=== PATIENT | female | born 1945 | race Caucasian/White ===

== ENCOUNTER 2019-11-17 09:05 | Inpatient (IN) | payer MEDICARE, SELFPAY ==
[2019-11-17] VITALS (72 sets, daily range): BP systolic 60–112; BP diastolic 0–80; PULSE 75–159; RESP 14–28; TEMP 36.5; O2SAT 67–99; BMI 29.2
--- NOTE | 2019-11-17 08:46 | ECG_ITS ---
Measurements Intervals [place] Rate: 113 P: OR: 0 QRS: -71 QRSD: 170 T: 78 QT: 318 QTc: 437 ATRIAL FIBRILLATION WITH RAPID VENTRICULAR RESPONSE INTRAVENTRICULAR CONDUCTION DELAY [130+ ms QRS DURATION] INFERIOR MYOCARDIAL INFARCTION [40+ ms Q WAVE AND/OR ST/T ABNORMALITY IN II/aVF], PROBABLY OLD WITH POSTERIOR EXTENSION [PROMIN ANTEROLATERAL MYOCARDIAL INFARCTION [40+ ms Q WAVE IN I/aVL/V3-V6], OF IN INDETERMINATE AGE No previous ECG available for comparison Electronically Signed On 11-17-2019 21:00:51 CDT by Dorene Liu M.D. [id number]
--- NOTE | 2019-11-17 08:46 | XRR_ITS ---
PROCEDURE INFORMATION: Exam: XR Chest, 1 View Exam date and time: 11/17/2019 9:24 AM Age: 74 years old Clinical indication: Other: Rapid heart rate; Patient HX: Woke up this am not feeling well, PT does have pacer pads on that could not be removed; Additional info: Svt TECHNIQUE: Imaging protocol: XR of the chest Views: 1 view. COMPARISON: No relevant prior studies available. FINDINGS: The thorax is partially obscured by overlying EKG patch. Lungs: Interstitial prominence. Pleural space: No significant pleural effusion. Heart/Mediastinum: Borderline cardiomegaly. Bones/joints: Osteopenia and mild degenerative change. XR/XR chest 1V portable [id number] IMPRESSION: Interstitial prominence and borderline cardiomegaly.
[2019-11-17] MEDS: sodium chloride 0.9% 500 ML 999 ML IV (08:47)
--- NOTE | 2019-11-17 08:52 | W.ED.CHESTPA ---
HPI - Chest Pain General: Chief Complaint: Chest Pain Stated Complaint: rapid heart rate History of Present Illness: HPI narrative: Patient awoke this morning with rapid pounding heart rate. She had some chest pain at that time along with shortness of breath and diaphoresis. EMS was summoned. Patient was found to be in SVT. She was given adenosine 6 mg and then 12 mg. There was no response to this treatment. The decision was made to cardiovert the patient. MD complaint: chest pain Onset (ago): hour(s) Timing of current episode: now resolved Prior episodes: No Onset: awoke with symptoms Pain location: substernal Pain radiation: none Quality: heaviness and fullness Relieving factors: nothing Exacerbating factors: nothing Associated symptoms: Reports dyspnea and palpitations Treatment prior to arrival: none, oxygen and other Review of Systems Card: Reports: palpitations Resp: Reports: dyspnea [facility] ED PFSH: Social History Smoking and tobacco status: former smoker Course Vital Signs: Vital signs: Vital Signs Temperature 97.7 F 11/17/19 08:51 Pulse Rate 128 H 11/17/19 11:30 Respiratory Rate 16 11/17/19 11:30 Blood Pressure 91/47 11/17/19 11:30 Pulse Oximetry 99 11/17/19 11:30 MDM - Chest Pain Lab Data: Labs: Lab Results 11/17/19 11/17/19 11/17/19 Range/Units 09:15 09:15 09:15 WBC 9.7 (4.0-10.0) 10^3/ uL RBC 4.66 (4.1-5.3) 10^6/u L Hgb 14.8 (11.5-15.3) g/dL Hct 44.3 (37.0-47.0) % MCV 95.1 (81-99) fL MCH 31.8 (28.0-34.0) pg MCHC 33.4 (30.0-36.0) g/dL RDW 13.4 (12.1-15.1) % Plt Count 265 (130-400) 10^3/c mm MPV 10.0 (7.4-10.4) fL Neut % (Auto) 58.9 % Lymph % (Auto) 35.1 % [place] % (Auto) 4.3 % Eos % (Auto) 1.2 % Baso % (Auto) 0.3 % Neut # (Auto) 5.7 (1.8-7.7) 10^3/u L Lymph # (Auto) 3.4 (0.8-4.8) 10^3/u L [place] # (Auto) 0.4 (0.2-0.9) 10^3/u L Eos # (Auto) 0.1 (0.0-0.8) 10^3/u L Baso # (Auto) 0.0 (0.0-0.1) 10^3/u L Nucleated RBC % (a uto) 0 % Nucleated RBCs # 0.0 /100WBC PT 13.40 H (10.5-13.3) SECO NDS INR 0.99 (0.8-1.2) Sodium 137 (136-145) mmol/L Potassium 4.5 (3.5-5.1) mmol/L Chloride 102 (98-107) mmol/L Carbon Dioxide 19 L (22-29) mmol/L Anion Gap 20.5 H (5-19) BUN 15 (8-23) mg/dL Creatinine 0.8 (0.5-0.9) mg/dL Glucose 260 H (65-115) mg/dL Calculated Osmolal ity 289 (285-295) mOsm/k g Calcium 9.0 (8.5-10.5) mg/dL Phosphorus (2.5-4.5) mg/dL Magnesium (1.7-2.3) mg/dL Total Bilirubin 0.4 (0.15-1.2) mg/dL AST 30 (0-32) U/L ALT 22 (0-33) U/L Alkaline Phosphata se 85 (35-105) IU/L Troponin T Baselin e (0-10) ng/L Troponin T 120 Min [place] (0-10) ng/L Delta Troponin T (0-10) ABS# NT-Pro-B Natriuret Pep 669 H (0-450) pg/mL Total Protein 6.8 (6.6-8.7) g/dL Albumin 4.2 (3.5-5.2) g/dL Globulin 2.6 (1.3-4.6) g/dL TSH 7.34 H (0.27-4.20) uIU/ mL Urine Color (Yellow) Urine Appearance (CLEAR) Urine pH (5-7) Ur Specific Gravit y (1.005-1.030) Urine Protein (Negative) Urine Glucose (UA) (Normal) Urine Ketones (Negative) Urine Blood (Negative) Urine Nitrate (Negative) Urine Bilirubin (NEGATIVE) Urine Urobilinogen (Negative) mg/dL Ur Leukocyte Cristina ase (Negative) Urine RBC (0-2) /hpf Urine WBC (0-5) /hpf Ur Squamous Epith Cells (0-5) Urine Bacteria (NONE) Hyaline Casts Coarse Granular Ca sts /lpf Urine Mucus 11/17/19 11/17/19 11/17/19 Range/Units 09:15 09:15 09:50 WBC (4.0-10.0) 10^3/ uL RBC (4.1-5.3) 10^6/u L Hgb (11.5-15.3) g/dL Hct (37.0-47.0) % MCV (81-99) fL MCH (28.0-34.0) pg MCHC (30.0-36.0) g/dL RDW (12.1-15.1) % Plt Count (130-400) 10^3/c mm MPV (7.4-10.4) fL Neut % (Auto) % Lymph % (Auto) % [place] % (Auto) % Eos % (Auto) % Baso % (Auto) % Neut # (Auto) (1.8-7.7) 10^3/u L Lymph # (Auto) (0.8-4.8) 10^3/u L [place] # (Auto) (0.2-0.9) 10^3/u L Eos # (Auto) (0.0-0.8) 10^3/u L Baso # (Auto) (0.0-0.1) 10^3/u L Nucleated RBC % (a uto) % Nucleated RBCs # /100WBC PT (10.5-13.3) SECO NDS INR (0.8-1.2) Sodium (136-145) mmol/L Potassium (3.5-5.1) mmol/L Chloride (98-107) mmol/L Carbon Dioxide (22-29) mmol/L Anion Gap (5-19) BUN (8-23) mg/dL Creatinine (0.5-0.9) mg/dL Glucose (65-115) mg/dL Calculated Osmolal ity (285-295) mOsm/k g Calcium (8.5-10.5) mg/dL Phosphorus 4.0 (2.5-4.5) mg/dL Magnesium 2.3 (1.7-2.3) mg/dL Total Bilirubin (0.15-1.2) mg/dL AST (0-32) U/L ALT (0-33) U/L Alkaline Phosphata se (35-105) IU/L Troponin T Baselin e 15 H (0-10) ng/L Troponin T 120 Min [place] (0-10) ng/L Delta Troponin T (0-10) ABS# NT-Pro-B Natriuret Pep (0-450) pg/mL Total Protein (6.6-8.7) g/dL Albumin (3.5-5.2) g/dL Globulin (1.3-4.6) g/dL TSH (0.27-4.20) uIU/ mL Urine Color Yellow (Yellow) Urine Appearance Hazy A (CLEAR) Urine pH 6 (5-7) Ur Specific Gravit y 1.015 (1.005-1.030) Urine Protein 1+ H (Negative) Urine Glucose (UA) Norm (Normal) Urine Ketones Negative (Negative) Urine Blood Neg (Negative) Urine Nitrate Positive H (Negative) Urine Bilirubin Neg (NEGATIVE) Urine Urobilinogen Norm (Negative) mg/dL Ur Leukocyte Cristina ase Negative (Negative) Urine RBC None (0-2) /hpf Urine WBC 5-10 H (0-5) /hpf Ur Squamous Epith Cells None (0-5) Urine Bacteria 3+ H (NONE) Hyaline Casts 15-25 H Coarse Granular Ca sts 0-4 H /lpf Urine Mucus Trace 11/17/19 Range/Units 11:06 WBC (4.0-10.0) 10^3/ uL RBC (4.1-5.3) 10^6/u L Hgb (11.5-15.3) g/dL Hct (37.0-47.0) % MCV (81-99) fL MCH (28.0-34.0) pg MCHC (30.0-36.0) g/dL RDW (12.1-15.1) % Plt Count (130-400) 10^3/c mm MPV (7.4-10.4) fL Neut % (Auto) % Lymph % (Auto) % [place] % (Auto) % Eos % (Auto) % Baso % (Auto) % Neut # (Auto) (1.8-7.7) 10^3/u L Lymph # (Auto) (0.8-4.8) 10^3/u L [place] # (Auto) (0.2-0.9) 10^3/u L Eos # (Auto) (0.0-0.8) 10^3/u L Baso # (Auto) (0.0-0.1) 10^3/u L Nucleated RBC % (a uto) % Nucleated RBCs # /100WBC PT (10.5-13.3) SECO NDS INR (0.8-1.2) Sodium (136-145) mmol/L Potassium (3.5-5.1) mmol/L Chloride (98-107) mmol/L Carbon Dioxide (22-29) mmol/L Anion Gap (5-19) BUN (8-23) mg/dL Creatinine (0.5-0.9) mg/dL Glucose (65-115) mg/dL Calculated Osmolal ity (285-295) mOsm/k g Calcium (8.5-10.5) mg/dL Phosphorus (2.5-4.5) mg/dL Magnesium (1.7-2.3) mg/dL Total Bilirubin (0.15-1.2) mg/dL AST (0-32) U/L ALT (0-33) U/L Alkaline Phosphata se (35-105) IU/L Troponin T Baselin e (0-10) ng/L Troponin T 120 Min [place] 153.2 H (0-10) ng/L Delta Troponin T 138.2 H* (0-10) ABS# NT-Pro-B Natriuret Pep (0-450) pg/mL Total Protein (6.6-8.7) g/dL Albumin (3.5-5.2) g/dL Globulin (1.3-4.6) g/dL TSH (0.27-4.20) uIU/ mL Urine Color (Yellow) Urine Appearance (CLEAR) Urine pH (5-7) Ur Specific Gravit y (1.005-1.030) Urine Protein (Negative) Urine Glucose (UA) (Normal) Urine Ketones (Negative) Urine Blood (Negative) Urine Nitrate (Negative) Urine Bilirubin (NEGATIVE) Urine Urobilinogen (Negative) mg/dL Ur Leukocyte Cristina ase (Negative) Urine RBC (0-2) /hpf Urine WBC (0-5) /hpf Ur Squamous Epith Cells (0-5) Urine Bacteria (NONE) Hyaline Casts Coarse Granular Ca sts /lpf Urine Mucus Discharge Plan Discharge Patient Disposition: Admitted As Inpatient Clinical Impression: Non-ST elevation SD (NSTEMI), Atrial fibrillation/flutter, Ventricular tachyarrhythmia Chest pain Qualifiers: Chest pain type: unspecified Qualified Code(s): R07.9 - Chest pain, unspecified Cardiac dysrhythmia Qualifiers: Arrhythmia type: supraventricular tachycardia Qualified Code(s): I47.1 - Supraventricular tachycardia Condition: Serious Referrals: Geneva Franklin [Primary Care Provider] - Coding Level of Care Code ED Ramp Service Agent for [facility]
--- NOTE | 2019-11-17 09:22 | PC.NURSE ---
Patient connected to [employer] monitor via combo pads.
--- NOTE | 2019-11-17 09:22 | PC.NURSE ---
Patient hygiene performed.
[2019-11-17 09:39] LABS: Basophils % 0.3 %; Eosinophils # 0.1 10^3/uL (0.0-0.8); Eosinophils % 1.2 %; Hematocrit 44.3 % (37.0-47.0); Hemoglobin 14.8 g/dL (11.5-15.3); Lymphocytes # 3.4 10^3/uL (0.8-4.8); Lymphocytes % 35.1 %; Mean Corpuscular HGB Conc 33.4 g/dL (30.0-36.0); Mean Corpuscular Hemoglobin 31.8 pg (28.0-34.0); Mean Corpuscular Volume 95.1 fL (81-99); Monocytes # 0.4 10^3/uL (0.2-0.9); Monocytes % 4.3 %; Neutrophils # 5.7 10^3/uL (1.8-7.7); Neutrophils % 58.9 %; Nucleated Red Blood Cells % 0 %; Platelet Count 265 10^3/cmm (130-400); Red Blood Count 4.66 10^6/uL (4.1-5.3); Red Cell Distribution Width 13.4 % (12.1-15.1); White Blood Count 9.7 10^3/uL (4.0-10.0)
[2019-11-17 09:48] LABS: INR 0.99 (0.8-1.2)
[2019-11-17 09:55] LABS: Troponin(5th) Baseline 15 ng/L (0-10)
[2019-11-17 10:03] LABS: Alanine Aminotransferase 22 U/L (0-33); Albumin Level 4.2 g/dL (3.5-5.2); Alkaline Phosphatase 85 IU/L (35-105); Anion Gap 20.5 (5-19); Aspartate Amino Transferase 30 U/L (0-32); Blood Urea Nitrogen 15 mg/dL (8-23); Carbon Dioxide 19 mmol/L (22-29); Chloride 102 mmol/L (98-107); Globulin 2.6 g/dL (1.3-4.6); Glucose 260 mg/dL (65-115); NT Pro B Type Natriuretic Pept 669 pg/mL (0-450); Osmolality Calculated 289 mOsm/kg (285-295); Potassium 4.5 mmol/L (3.5-5.1); Sodium 137 mmol/L (136-145); Thyroid Stimulating Hormone 7.34 uIU/mL (0.27-4.20); Total Bilirubin 0.4 mg/dL (0.15-1.2); Total Protein 6.8 g/dL (6.6-8.7)
--- NOTE | 2019-11-17 10:46 | ECG_ITS ---
Measurements Intervals [place] Rate: 91 P: 219 VA: 148 QRS: -86 QRSD: 157 T: 85 QT: 402 QTc: 497 SINUS RHYTHM WITH OCCASIONAL SUPRAVENTRICULAR PREMATURE COMPLEXES INTRAVENTRICULAR CONDUCTION DELAY [130+ ms QRS DURATION] INFERIOR MYOCARDIAL INFARCTION [40+ ms Q WAVE AND/OR ST/T ABNORMALITY IN II/aVF], PROBABLY OLD ANTEROLATERAL MYOCARDIAL INFARCTION [40+ ms Q WAVE IN I/aVL/V3-V6], PROBABLY RECENT ACUTE IN INTERPRETATION BASED ON A DEFAULT AGE OF 40 YEARS No previous ECG available for comparison Electronically Signed On 11-17-2019 21:06:16 CDT by Dorene Liu M.D. [id number]
[2019-11-17] MEDS: sodium chloride 0.9% 1,000 ML 999 ML IV ×2 (11:00→13:34)
[2019-11-17 11:28] LABS: Specific Gravity, Urine 1.015 (1.005-1.030); Urine Appearance Hazy (CLEAR); Urine Color Yellow (Yellow); pH Urine 6 (5-7)
[2019-11-17 11:29] LABS: Add Urine Microscopic? YES; Bacteria Urine 3+; Bilirubin Urine Neg (NEGATIVE); Blood Urine Neg (Negative); Glucose Urine UA Norm (Normal); Ketones Urine Negative (Negative); Leukocyte Esterase Urine Negative (Negative); Mucus Urine TRACE; Nitrate Urine Positive (Negative); Protein Urine 1+ (Negative); Urobilinogen Urine Norm (Negative)
[2019-11-17 11:30] LABS: Add Urine Culture? Yes; Coarse Granular Casts Urine 0-4 /lpf; Hyaline Casts Urine 15-25
[2019-11-17] MEDS: magnesium sulfate premix 2 GM/50 ML PIGGYBACK IV (11:58)
[2019-11-17] MEDS: midazolam 1 mg/mL INJ 2 mL 4 MG (12:03)
[2019-11-17] MEDS: succinylcholine 20 mg/mL SDV 10mL 150 MG IVP (12:11)
--- NOTE | 2019-11-17 12:12 | PC.NURSE ---
RSI performed by EMD. See RT note.
[2019-11-17] MEDS: vecuronium 10 mg SDV IVP (12:15)
--- NOTE | 2019-11-17 12:22 | XRR_ITS ---
PROCEDURE INFORMATION: Exam: XR Chest, 1 View Exam date and time: 11/17/2019 12:34 PM Age: 74 years old Clinical indication: Device placement; Ett placement (vent status); Patient HX: Post tube placement TECHNIQUE: Imaging protocol: XR of the chest Views: 1 view. COMPARISON: CR XR chest 1V portable [id number] 11/17/2019 9:11 AM FINDINGS: The thorax is partially obscured by overlying EKG patch. Tubes, catheters and devices: Endotracheal tube terminates 4.0 cm above the julia. Feeding tube courses into the proximal stomach with distal tip not visualized. Lungs: Interstitial prominence and right perihilar airspace disease. Pleural space: No significant pleural effusion. Heart/Mediastinum: Borderline cardiomegaly. Bones/joints: Osteopenia and degenerative change. XR/XR chest 1V portable [id number] IMPRESSION: 1. Endotracheal tube terminates 4.0 cm above the julia. Feeding tube courses into the proximal stomach with distal tip not visualized. 2. Interstitial prominence and right perihilar airspace disease.
[2019-11-17 12:32] LABS: Troponin 5 2HR 153.2 ng/L (0-10); Troponin 5 2HR Delta 138.2 ABS# (0-10)
--- NOTE | 2019-11-17 12:40 | XACV_ITS ---
Gender: Female : 1945 Exam Priority: Routine Procedure(s): Procedure Description: Diagnostic procedure Procedure Description: PCI procedure Diagnostic Cath Status: Emergency Diagnostic Findings Patient arrived to the emergency room after having been cardioverted in route. She had fairly classic signs and symptoms of a myocardial infarction. Please see the history and physical for details. Well over 3 hours after her arrival I was contacted. She was brought to the catheterization laboratory immediately after I saw her. She had been intubated in the emergency room for respiratory failure. She had also been cardioverted once in the emergency room for ventricular tachycardia. Angiography reveals a normal left main, normal circumflex and normal right coronary artery. There was a thrombotic occlusion of the LAD proximally. Significant thrombus burden. PCI Status: Emergency PCI LVEF Assessed: No PCI Indication: STEMI - Immediate PCI for STEMI Interventional Findings Patient was several hours into the myocardial infarction by the time I saw her. Initially a wire was placed down the LAD. There was such significant thrombus burden that multiple balloon angioplasties in the area of the closure and more distally did not open the vessel. Subsequently, I used intracoronary Aggrastat with a drip. This also did not open the vessel. Finally I turned to aspiration thrombectomy with some trepidation. This gave me slight antegrade flow to where I could place a stent at the lesion. Once this was accomplished there was no reflow. Because the blood pressure was very low around 75 mmHg I did not have much room to use a calcium channel anil. I did place a total of 200 mcg of nicardipine down the vessel which improved the flow somewhat. At the end of the procedure there was AUGUSTO II flow. Decision for PCI with Surgical Consult: No PCI for Multi-vessel Disease: No Conclusions Subacute anterior wall VA with cardiogenic shock. Occluded LAD with significant thrombus burden ultimately opened with balloon angioplasty followed by intracoronary Aggrastat followed by aspiration thrombectomy followed by stenting followed by minimal doses of nicardipine. No left ventriculogram. The left main coronary artery, circumflex and right coronary arteries are normal. Pressures Phase:Rest AO : 183 mmHg / 29 mmHg ( 168 mmHg ) @ 8:27:00 AM 94 mmHg / 69 mmHg ( 80 mmHg ) @ 8:29:00 AM 90 mmHg / 68 mmHg ( 76 mmHg ) @ 8:34:00 AM 81 mmHg / 68 mmHg ( 74 mmHg ) @ 8:36:00 AM 2 mmHg / 0 mmHg ( -1 mmHg ) @ 8:51:00 AM Clinical Evaluation EBL: 5mL-10mL Procedural Details Procedure Consent Obtained. Pre-Procedure Time Out. Identified patient by full name and date of as verbalized by the patient/guarantor. Does the consent match the physician's order: Yes. Accurate & Complete Informed Consent: N/A Emergent. Inpatient/Outpatient History & Physical on Chart: N/A Emergent. If H&P is completed, is and addenduem needed: N/A Emergent; If yes, is the addendum complete: N/A Emergent. Visualize and Verify Site with Patient/Guarantor: N/A. Relevant Radiology Images available: N/A Emergent; Informed Consent not obtained due to time critical life threat. The risks, benefits, and alternatives of sedation and/or procedure were discussed by physician. The patient agrees to continue. Procedure started. Correct patient, site and procedure confirmed by cath team. IV Site on Arrival: 20 gauge in the left anticubital. IV Site on Arrival: 20 gauge in the right anticubital. Patient arrived to [facility] on a ventilator and will be managed by respiratiory. Patient's family unavailable. Equipment: 6F - Femoral. Physician arrived. Physician scrubbed in. Immediate Pre-Procedure Time Out. Correct Patient: Yes; Correct Procedure: Yes; Correct Site: Yes; Correct Patient Position: Yes; Correct Supplies: Yes; Dried Flammable Prep: Yes; Blood Products Available: N/A;. Lidocaine 1% infiltrated to the right groin. Arterial access obtained. 6 [place] XB 3 guide catheter was inserted over the wire. [place]iting guidewire was advanced through the guide catheter to lesion in the mid LAD. Inflation number : 1 A AB TREK 3.00X15 RX BALLOON was prepped and advanced across the Prox LAD , then inflated to 8 CHIARA for 0:18 seconds. Inflation number: 2 The AB TREK 3.00X15 RX BALLOON was reinflated across the Prox LAD, to 12 CHIARA for 0:22 seconds. Inflation number: 3 The AB TREK 3.00X15 RX BALLOON was reinflated across the Prox LAD, to 12 CHIARA for 0:19 seconds. Inflation number: 4 The AB TREK 3.00X15 RX BALLOON was reinflated across the Prox LAD, to 12 CHIARA for 0:17 seconds. Inflation number: 5 The AB TREK 3.00X15 RX BALLOON was reinflated across the Prox LAD, to 12 CHIARA for 0:17 seconds. Inflation number: 6 The AB TREK 3.00X15 RX BALLOON was reinflated across the Prox LAD, to 12 CHIARA for 0:17 seconds. Inflation number: 7 The AB TREK 3.00X15 RX BALLOON was reinflated across the Prox LAD, to 12 CHIARA for 0:31 seconds. Inflation number: 8 The AB TREK 3.00X15 RX BALLOON was reinflated across the Prox LAD, to 12 CHIARA for 0:33 seconds. Inflation number: 9 The AB TREK 3.00X15 RX BALLOON was reinflated across the Prox LAD, to 12 CHIARA for 0:31 seconds. Inflation number: 10 The AB TREK 3.00X15 RX BALLOON was reinflated across the Prox LAD, to 12 CHIARA for 0:25 seconds. Inflation number: 11 The AB TREK 3.00X15 RX BALLOON was reinflated across the Prox LAD, to 12 CHIARA for 0:21 seconds. Inflation number: 12 The AB TREK 3.00X15 RX BALLOON was reinflated across the Prox LAD, to 12 CHIARA for 0:16 seconds. balloon out. inserting the Pronto aspiration catheter. aspiration performed. Manual thrombectomy catheter inserted over to the wire. Manual thrombectomy performed. Patient's family updated by Dr. Eden. aspiration catheter out. inserting the Pronto aspiration catheter. aspiration performed. Manual thrombectomy catheter inserted over to the wire. Manual thrombectomy performed. aspiration catheter out. Inflation Number : 13 A ENDER [place] MAITE 3.0X18 DANIELE -Lot Number# [id number] exp 09/03/2020 was prepped and advanced across the Prox LAD. The stent was deployed at 16 CHIARA for 0:47 seconds. stent balloon out. Aortic pressure 73/59 (66). Aortic prssure: 78/73 (60). wire out, guide out. inserting the JR4 6Fr dx catheter. Multiple views taken of right coronary artery. catheter out. Sheath(s) sutured into position with 2-0 silk and sterile 4x4's and Op-site applied over the site. No oozing or signs and symptoms of hematoma noted. Arterial sheath flushed and connected to tranducer and pressure bag with heparinized saline. Post Procedure: Pulses reassessed and unchanged. No VTE prophylaxis required. Medication's Wasted: Lidocaine 1% = 10 mL. Medication's Wasted: Lasix = 60mg. Medication's Wasted: Heparin = 4000 Units. Medication's Wasted: Cardene = 24.8 mg. Total IV fluids: 0 mL. Fluoro: 11:07. Contrast type used: Omnipaque 300 mgI/mL, 500 mL bottle. [id number]. PCI Indication: STEMI. Post-op diagnosis: Stemi. Complications: none. Estimated blood loss: 5mL-10mL. Procedure completed. Patient transferred by bed to ICU. Site: Right Femoral artery Sheath Size: 5 Fr Hemostasis Success: Unsuccessful Procedure Medications Start: 1:22 PM Stop: 1:22 PM Medication: Levophed (norepinephrine) Amount: 10 mcg/min Route: I.V. drip Start: 1:32 PM Stop: 1:32 PM Medication: Lasix (furosemide) Amount: 40 mg Route: I.V. Start: 1:39 PM Stop: 1:39 PM Medication: Aggrastat 12.5 mg/250 mL Amount: 39 ml Route: I.C. Start: 1:40 PM Stop: 1:40 PM Medication: Aggrastat 12.5 mg/250 mL Amount: 14 ml/hr Route: I.V. drip Start: 1:44 PM Stop: 1:44 PM Medication: Levophed (norepinephrine) Amount: 10 mcg/min Route: I.V. drip Start: 2:10 PM Stop: 2:10 PM Medication: Cardene Amount: 100 mcg Route: I.C. Start: 2:12 PM Stop: 2:12 PM Medication: Cardene Amount: 100 mcg Route: I.C. I, the attending physician, have reviewed and verified all procedure medications. Yes, all medications given per verbal order Report Signatures Finalized by:Dr. Eduard Han MD on 11/17/2019 2:52:27 PM
[2019-11-17] MEDS: cefTRIAXone 1,000 MG in sodium chloride 0.9% (plus) 50 ML 100 MG IV (12:50)
[2019-11-17 12:51] LABS: Magnesium 2.3 mg/dL (1.7-2.3)
--- NOTE | 2019-11-17 13:05 | PM.CONSULT ---
Providers/Reason For Consult Consulting Physican/Specialty*: Cardiovascular medicine Reason for Consult*: Abnormal rhythm, respiratory failure, hypotension, myocardial infarction Primary Care Provider: Geneva Franklin History of Present Illness History of Present Illness Cadence Olivera is a 74 year old female who was brought to the emergency room by ambulance this morning. She arrived at the emergency room at 845 this morning. I spoke to her son after I was called around 1230 this afternoon. He told me that she essentially lives alone with a daughter who has Down syndrome. The patient called her son stating that she felt terribly weak and had a funny sensation in her back, chest and arms and was sweating. The son lives about 2 miles away and went over to his mother's house. He had to break the door down in order to get into the house. She was very weak and could not get up. She was sweating and pale. He simply called the ambulance. She was given 3 L of saline between the time the ambulance picked her up and the time I was called. The first responders gave her 325 mg of aspirin. The rhythm on the prehospital strips shows sinus tachycardia with a right bundle branch block and ST segment changes in the anterior and lateral leads. Patient was apparently awake and alert but was shocked for this rhythm after being given 6 mg of adenosine followed by 12 mg of adenosine. The rhythm was obviously misinterpreted. Upon her arrival here she was in a wide-complex rhythm that may have been atrial fibrillation. Her first EKG was at 0848 hours and showed an irregular tachycardia either atrial fibrillation versus sinus tachycardia with a right bundle branch block. There was ST segment elevation in 1, L and V1 through V3. Patient then had an episode of a wide-complex rhythm which appeared to be ventricular tachycardia. She underwent a second counter shocking here in the emergency room for that. She was given 2 mg of magnesium sulfate, 4 mg of Versed had and then sometime later she began to have difficulty breathing and was intubated. This was after being given etomidate, succinylcholine and vecuronium. A second EKG was at about 1056 hrs. showing the same as the first. The third EKG was at 1201 hrs. showing sinus tachycardia with ST segment elevation in the anterolateral leads and a right bundle branch block. The fourth EKG was at 1205 showing a similar finding. It was after the fourth EKG that I was called around 1230 to help interpret the EKG. After seeing the EKGs and the rhythm strips I came in to see the patient. Upon my arrival the patient is sedated after receiving etomidate, succinylcholine and vecuronium. She is on a norepinephrine drip at 10 mcg/min. Her blood pressure is around 100 systolic. She is intubated on a ventilator so no history can be taken from her. The only other history I was able to get from her son is he thinks she takes medication for hypertension, depression and thyroid problems. He tells me that she has no history of heart disease. I have given her 600 mg of Plavix and 4000 units of heparin. A Coon catheter was placed by the emergency room personnel. Review of Systems General: Reports: ROS unobtainable due to endotracheal tube Meds/Allergies Home Medications and Allergies Home Medications Medication Instructions Recorded Confirmed Last Taken Type amlodipine 10 mg PO DAILY 11/17/19 11/17/19 11/16/19 History fluoxetine 20 mg PO DAILY 11/17/19 11/17/19 11/16/19 History levothyroxine [Synthroid] 25 mcg PO DAILY 11/17/19 11/17/19 11/17/19 History raloxifene 60 mg PO DAILY 11/17/19 11/17/19 11/16/19 History Allergies Allergy/AdvReac Type Severity Reaction Status Date / Time No Known Allergies Allergy Verified 11/17/19 08:54 Current Medications Current Medications Generic Name Dose Route Start Last Admin Trade Name Freq PRN Reason Stop Dose Admin Norepinephrine Bitartrate 4 mg 254 mls @ 0 mls/hr 11/17/19 11:15 11/17/19 11:35 / Dextrose IV 2 mcg/min .Q0M JESSICA 7.6 mls/hr Administration Protocol Per Protocol PFSH Acute PFSH: Medical History (Updated 11/17/19 @ 13:16 by Eduard Han MD) Acute anterolateral wall CO Depression Hypertension Hypothyroid Respiratory failure Social History Smoking and tobacco status: former smoker Vitals/I&O/Wt Last Vital Signs Temp 97.7 F 11/17/19 08:51 Pulse 128 H 11/17/19 11:30 Resp 16 11/17/19 11:30 BP 91/47 11/17/19 11:30 Pulse Ox 99 11/17/19 11:30 Weight last 48 hrs Weight 170 lb Physical Exam Narrative: EXAM NARRATIVE: GENERAL: In general she is heavily sedated having been given etomidate for endotracheal intubation. She is intubated. HEENT: Exam within normal limits. NECK: Supple without jugular vein distention. The carotid upstroke is normal without bruits. BACK: Exam normal. LUNGS: Clear. HEART: Regular rate and rhythm. ABDOMEN: Benign without organomegaly or tenderness. EXTREMITIES: No edema. NEUROLOGIC: Exam not done SKIN: Unremarkable. Urinary Catheter Management^: Coon: Cath Placed During This Visit: no Reason for Continuing Indwelling Catheter: Other Data Other Data: Other data: Chest x-ray shows cardiomegaly and interstitial fullness. The first troponin drawn at 084 6 hours is 15. The second at 1050 hrs. is 153. A&P Assessment and plan (1) Ventricular tachyarrhythmia: Status: Acute (2) Chest pain: Status: Acute Qualifiers: Chest pain type: unspecified Qualified Code(s): R07.9 - Chest pain, unspecified (3) Hypertension: Status: Acute (4) Acute anterolateral wall CO: Status: Acute (5) Respiratory failure: Status: Acute Additional A&P Information This all started around 7 or 730 this morning when she called her son. She is been having a myocardial infarction since that time. It is now 1315 hrs. She will go directly to the cardiac catheterization laboratory. Combination of the CO and the 3 L of normal saline have likely made her volume overloaded. She has had respiratory failure due to the CO and likely cardiogenic shock. The rhythm in the prehospital side was misinterpreted. The rhythm here was ventricular tachycardia and associated with an anterior wall CO. The EKG for myocardial infarction was not interpreted correctly due to the right bundle branch block and wide-complex QRS. We will take her to the Environmental Engineering Intern now and then she will be admitted to the ICU. I have spoken in detail to her son. I have also spoken with Dr. Eden the hospitalist who will help me manage the patient. Consult Attestations Medical Necessity Statement: Not applicable Coding Level of Care Code New Pt Acute Complaint Coordinator for Chg Fwd Patient Type New History Comprehensive Exam Comprehensive Medical Decision Making High Complexity Diagnoses Ventricular tachyarrhythmia I47.2 Chest pain R07.9 Chest pain type: unspecified Hypertension I10 Acute anterolateral wall CO I21.09 Respiratory failure J96.90
[2019-11-17] MEDS: clopidogrel 300 mg Tablet 600 MG PO (13:06)
[2019-11-17] MEDS: heparin 5,000 unit/mL INJ 1 mL 4000 UNIT INJECTION (13:06)
--- NOTE | 2019-11-17 13:42 | P.HP_ITS ---
Providers/Chief Complaint Primary Care Provider: Geneva Franklin Chief Complaint: rapid heart rate History of Present Illness Cadence Olivera is a 74 year old female who presented with chest pain. She had talked to her son this morning and was feeling okay. She gotten some coffee and not too long after she had a bit of it she had sudden onset of nausea and vomiting. She called her son and told him that she thought she was about to pass out. He came over to see her. She was complaining of pain in her arms. Eduard, her son, had had a heart attack a few years ago and she asked him if this is what it felt like. EMS was called. When they arrived or in route, patient had what was felt to be SVT. She received 6 and 12 of adenosine in route. She had no response to this and was subsequently cardioverted. Keep aspirin. On arrival here, EKG showed atrial fibrillation. She had a wide-complex with ST segment elevation. She became hypotensive. She was given some fluids. She was started on some Levophed. She had some ventricular tachycardia and was cardioverted again in the emergency room. She was intubated. Cardiology was consulted. Patient went to the Agr[facility] Research [facility] straight from the emergency room. Patient has no personal history of coronary artery disease, hypertension, diabetes. She does have a history of hypertension. She has a son who has had a stent placed. She may have smoked 40+ years ago but none in that interim. No history of alcohol or drug use. One of her daughters, Rose, has Down syndrome and lives with her. No recent problems were identified from her. Patient son indicates that she walks several miles a day, is generally very active and takes care of all of her own activities of daily living and such. The only other episode of anything that Eduard, her son who is here currently, celestino franklin think of is that about 3 years ago she had a syncopal episode and presented to [facility]. Prior to that episode she had been started on some new medication for blood pressure that dropped her sodium. She was admitted overnight to the hospital and discharged. Patient has 5 children all of whom are coming in. One daughter, John, is a nurse whose is a neurologist in [place]. She will be here later on. Review of Systems General: Reports: ROS unobtainable due to endotracheal tube and ROS unobtainable due to medical condition Medications/Allergies Home Medications Medication Instructions Recorded Confirmed Last Taken Type amlodipine 10 mg PO DAILY 11/17/19 11/17/19 11/16/19 History fluoxetine 20 mg PO DAILY 11/17/19 11/17/19 11/16/19 History levothyroxine [Synthroid] 25 mcg PO DAILY 11/17/19 11/17/19 11/17/19 History raloxifene 60 mg PO DAILY 11/17/19 11/17/19 11/16/19 History Allergies Allergy/AdvReac Type Severity Reaction Status Date / Time amoxicillin [From Augmentin] Allergy Severe Unknown Verified 11/17/19 14:12 clavulanic acid Allergy Severe Unknown Verified 11/17/19 14:12 [From Augmentin] PFSH Acute PFSH: Medical History Acute anterolateral wall MA Depression Hypertension Hypothyroid Osteoporosis Family History Mother Diabetes Social History (Updated 11/17/19 @ 19:00 by Penny Eden MD) Smoking and tobacco status: former smoker Alcohol intake: never Substance/Drug Use: never Lives independently: Yes Household members: other Details: Daughter with Down syndrome, name is Rose Supplemental PFSH Information: No known surgical history G5, P5 Vitals/I&O/Wt Last Vital Signs Temp 97.7 F 11/17/19 08:51 Pulse 128 H 11/17/19 11:30 Resp 14 11/17/19 13:36 BP 91/47 11/17/19 11:30 Pulse Ox 99 11/17/19 11:30 11/16/19 11/17/19 11/17/19 22:59 06:59 14:59 Intake Total 1019.934 / 1019.934 Balance 1019.934 / 1019.934 Weight last 48 hrs Weight 77.111 kg Physical Exam Narrative: EXAM NARRATIVE: Patient is intubated and had received sedation earlier Normocephalic atraumatic Pupils are equally round and reactive to light, corneal reflexes are intact, able to elicit a gag with manipulation of ET tube, ET tube and OG tube are in place Neck supple, mottling noted of the neck Coarse rales, equal breath sounds Tachycardic, regular rhythm, capillary refill around 3 seconds to both feet Abdomen is soft, no obvious tenderness, no bowel sounds presently Coon catheter is in place No pitting edema although legs are puffy, she is mottled from her feet up to her upper abdomen although it spares the breast. No spontaneous movement Urinary Catheter Management^: Coon: Cath Placed During This Visit: yes Urethral Indwelling: Yes Reason for Continuing Indwelling Catheter: Accurate Measurement of Urinary Output in Critically Ill Patients Urinary Catheter Date of Insertion: 11/17/19 Data : 11/17/19 17:09 11/17/19 17:09 Other Labs: Laboratory Tests 11/17/19 11/17/19 11/17/19 09:15 09:15 09:15 WBC 9.7 Hgb 14.8 Hct 44.3 Plt Count 265 Neut % (Auto) 58.9 PT 13.40 H INR 0.99 Sodium 137 Chloride 102 Carbon Dioxide 19 L Anion Gap 20.5 H BUN 15 Creatinine 0.8 Glucose 260 H Calcium 9.0 Phosphorus Magnesium Total Bilirubin 0.4 AST 30 ALT 22 Alkaline Phosphatase 85 Troponin T Baseline NT-Pro-B Natriuret Pep 669 H Total Protein 6.8 Albumin 4.2 Globulin 2.6 TSH 7.34 H 11/17/19 11/17/19 09:15 09:15 WBC Hgb Hct Plt Count Neut % (Auto) PT INR Sodium Chloride Carbon Dioxide Anion Gap BUN Creatinine Glucose Calcium Phosphorus 4.0 Magnesium 2.3 Total Bilirubin AST ALT Alkaline Phosphatase Troponin T Baseline 15 H NT-Pro-B Natriuret Pep Total Protein Albumin Globulin TSH A&P Assessment and plan (1) Acute anterolateral wall MA: Status: Acute (2) Cardiogenic shock: Status: Acute (3) Respiratory failure: Status: Acute Qualifiers: Chronicity: acute Respiratory failure complication: hypoxia Qualified Code(s): J96.01 - Acute respiratory failure with hypoxia (4) Hypertension: Status: Acute Qualifiers: Hypertension type: essential hypertension Qualified Code(s): I10 - Essential (primary) hypertension (5) Osteoporosis: Status: Acute Qualifiers: Osteoporosis type: unspecified Presence of current pathological fracture: unspecified Qualified Code(s): M81.0 - Age-related osteoporosis without current pathological fracture (6) Hypothyroid: Status: Acute Qualifiers: Hypothyroidism type: unspecified Qualified Code(s): E03.9 - Hypothyroidism, unspecified (7) Depression: Status: Acute Qualifiers: Depression Type: unspecified Qualified Code(s): F32.9 - Major depressive disorder, single episode, unspecified Additional A&P Information ICU care Appreciate Dr Han assistance and expertise Maintain respiratory support post procedure Continue pressors, currently on levophed. Will add as needed epinephrin e>vasopressin>neosynephrine. Will will monitor output from diuresis, she may need additional Has had 3-4 L fluid Monitor renal function closely, high risk acute renal failure, up to and including the possible need for dialysis Stat chest x-ray Repeat laboratory studies Recheck blood sugar as noted to be elevated earlier Hold sedation currently until we see if she wakes up She has received 1 dose of Rocephin in the emergency room for UTI, present on admission SCDs Anticipate anticoagulation post procedure Full code although family is very aware of the chance that she may not survive this event Family to notify and order in which to notify them are as follows: John, medical, Eduard, son closest to her, Debra, granddaughter [phone] Eduard Fine . [phone] Attestations Medical Necessity Statement*: Acutely life threatening situation. Requires greater than 2 midnight stay, if can get through this first night. Critical Care Time: The high probability of a clinically significant, sudden or life threatening deterioration of the patient's cardiovascular/pulmonary system(s) required my full and direct attention, intervention and personal management. The critical care time is as shown. This time is in addition to time spent performing any reported procedures but includes the following: x Data and vital sign review and interpretation x Patient assessment, examination and intervention x Documentation x Medication orders and management Critical Care Time (min): 45 Coding Level of Care Code Acute Refrigeration Service Inspector for [facility] Diagnoses Acute anterolateral wall MA I21.09 Cardiogenic shock R57.0 Respiratory failure J96.01 Chronicity: acute Respiratory failure complication: hypoxia Hypertension I10 Hypertension type: essential hypertension Osteoporosis M81.0 Osteoporosis type: unspecified Presence of current pathological fracture: unspecified Hypothyroid E03.9 Hypothyroidism type: unspecified Depression F32.9 Depression Type: unspecified
--- NOTE | 2019-11-17 14:46 | ECG_ITS ---
Measurements Intervals [place] Rate: 121 P: [place]: 0 QRS: -87 QRSD: 134 T: 81 QT: 359 QTc: 511 ATRIAL FIBRILLATION WITH RAPID VENTRICULAR RESPONSE RIGHT BUNDLE BRANCH BLOCK [120+ ms QRS DURATION, UPRIGHT V1, 40+ ms S IN I/aVL/V4/V5/V6] INFERIOR MYOCARDIAL INFARCTION [40+ ms Q WAVE AND/OR ST/T ABNORMALITY IN II/aVF], PROBABLY OLD ANTEROLATERAL MYOCARDIAL INFARCTION [40+ ms Q WAVE IN I/aVL/V3-V6], PROBABLY RECENT ACUTE SD No previous ECG available for comparison Electronically Signed On 11-17-2019 21:04:45 CDT by Dorene Liu M.D. [email or web address]
--- NOTE | 2019-11-17 14:57 | XRR_ITS ---
PROCEDURE INFORMATION: Exam: XR Chest, 1 View Exam date and time: 11/17/2019 2:58 PM Age: 74 years old Clinical indication: Other: Low stats on vent; Patient HX: Just had cath; Additional info: Criticall ill, low sats on vent TECHNIQUE: Imaging protocol: XR of the chest Views: 1 view. COMPARISON: CR XR chest 1V portable [id number] 11/17/2019 12:20 PM FINDINGS: Tubes, catheters and devices: Endotracheal and feeding tubes. The endotracheal tube terminates 4.5 cm above the julia. Lungs: COPD and interstitial disease. Interval worsening in asymmetric right-sided airspace disease, consistent with pulmonary edema in the appropriate clinical setting. Mild left basilar airspace/pleural disease. Heart/Mediastinum: Borderline cardiomegaly. Bones/joints: Osteopenia and degenerative change. XR/XR chest 1V portable [id number] IMPRESSION: Interval worsening in asymmetric right-sided airspace disease, consistent with pulmonary edema in the appropriate clinical setting.
[2019-11-17] MEDS: sodium bicarbonate 8.4% 1 mEq/mL 50mL Syr 50 MEQ IVP (15:28)
[2019-11-17] MEDS: enoxaparin 40 mg/0.4 mL Syringe SUBCUT (15:41)
[2019-11-17] MEDS: EPINEPHrine 2.5 MG in sodium chloride 0.9% 250 ML 36.4 MG IV (15:42)
[2019-11-17 15:52] LABS: Troponin 5 6HR 3430 ng/L (0-10); Troponin 5 6HR Delta 3415 ng/L (0-12)
[2019-11-17 15:56] LABS: ABG PCO2 46.8 mmHg (35-45); Alveolar-Arterial Oxygen Gradi 579.9 mmHg (5-10); Arterial Blood Gas Hematocrit 46.4 % (37-47); Base Excess ABG -21.8 mmol/L (-2.0-2.0); Blood Gas Sample Type Arterial; Carboxyhemoglobin 0.4 %THgb (0.4-20.1); HCO3 ABG 10.3 mmol/L (22-26); HGB O2 Sat 77.1 % (95-100); Methemoglobin 0.9 % (0.4-1.5); Oxygen Device VENT; Oxygen Saturation ABG 78.1; PO2 ABG 64.5 mmHg (80.0-100.0); Potassium Level - ABG 4.5 mmol/L (3.5-5.0); Total Hemoglobin 15.2 g/dL (12-16)
[2019-11-17 15:59] LABS: ABG PH Result 6.95 (7.35-7.45)
[2019-11-17 17:12] LABS: Basophils % 0.2 %; Eosinophils % 0.1 %; Hematocrit 51.1 % (37.0-47.0); Hemoglobin 15.5 g/dL (11.5-15.3); Lymphocytes # 3.3 10^3/uL (0.8-4.8); Lymphocytes % 24.3 %; Mean Corpuscular HGB Conc 30.3 g/dL (30.0-36.0); Mean Corpuscular Hemoglobin 31.4 pg (28.0-34.0); Mean Corpuscular Volume 103.7 fL (81-99); Mean Platelet Volume 9.6 fL (7.4-10.4); Monocytes # 0.4 10^3/uL (0.2-0.9); Monocytes % 3.1 %; Neutrophils # 9.3 10^3/uL (1.8-7.7); Neutrophils % 69.1 %; Nucleated Red Blood Cells % 0 %; Platelet Count 233 10^3/cmm (130-400); Red Blood Count 4.93 10^6/uL (4.1-5.3); Red Cell Distribution Width 14.1 % (12.1-15.1); White Blood Count 13.4 10^3/uL (4.0-10.0)
[2019-11-17 17:23] LABS: INR 1.39 (0.8-1.2)
[2019-11-17 17:34] LABS: Partial Thromboplastin Time 129.2 SECONDS (23.9-36.7)
[2019-11-17 17:44] LABS: Alanine Aminotransferase 108 U/L (0-33); Albumin Level 3.2 g/dL (3.5-5.2); Alkaline Phosphatase 76 IU/L (35-105); Anion Gap 31.4 (5-19); Aspartate Amino Transferase 372 U/L (0-32); Blood Urea Nitrogen 16 mg/dL (8-23); Calcium 7.3 mg/dL (8.5-10.5); Chloride 102 mmol/L (98-107); Creatinine Clr Calc Pharmacy 37.5797; Globulin 2.5 g/dL (1.3-4.6); Glucose 365 mg/dL (65-115); Magnesium 3.6 mg/dL (1.7-2.3); NT Pro B Type Natriuretic Pept 2000 pg/mL (0-450); Osmolality Calculated 295 mOsm/kg (285-295); Potassium 5.4 mmol/L (3.5-5.1); Sodium 137 mmol/L (136-145); Total Protein 5.7 g/dL (6.6-8.7)
[2019-11-17 17:57] LABS: Carbon Dioxide 9 mmol/L (22-29); Phosphorus 10.1 mg/dL (2.5-4.5)
[2019-11-17] MEDS: bumetanide 0.25 mg/mL SDV 10 mL 1 MG IV (17:58)
--- NOTE | 2019-11-17 17:59 | PC.NURSE ---
[facility] REFERRAL NUMBER IS [phone] CALLED IN AT 0197;
[2019-11-17] MEDS: sodium bicarbonate 8.4% 1 mEq/mL 50mL Syr 100 MEQ IVP (18:07)
--- NOTE | 2019-11-17 18:10 | PM.CONSULT ---
Providers/Reason For Consult Consulting Physican/Specialty*: Nephrology Reason for Consult*: Eval for TRINA and need for dialysis Attending Physician: Penny Eden MD Primary Care Provider: Geneva Franklin History of Present Illness History of Present Illness Cadence Olivera is a 74 year old female that presented this morning after feeling severely weak, unwell, aching back pain radiating into her back. EKG showed a anterior lead ST segment elevation, RBBB, wide complex tachycardia. She was diagnosed with ST elevation W[place], taken emergently to the laborer petroleum ref[facility] where she was found to have a large clot throughout a significant portion of her LAD. Please see Dr Han's input for details. She is now seen post WV in the ICU, she has max doses of multiple pressors and she is unable to sustain an adequate Bp, she is about to be transported for placement of an intra-aortic balloon pump. She is intubated and vented. History is taken from Dr Eden, bedside RNs and EMR No known history of kidney disease, creatinine is currently 1.3mg/dL. Her ABG shows severe acidosis with pH of 6.95, from a combined resp/metabolic acidosis. She is receiving bolus of sodium bicarbonate. So far she has made just 75ml/hr. Review of Systems General: Reports: ROS unobtainable due to endotracheal tube, ROS unobtainable due to medical condition and ROS unobtainable due to mental status Meds/Allergies Home Medications and Allergies Home Medications Medication Instructions Recorded Confirmed Last Taken Type amlodipine 10 mg PO DAILY 11/17/19 11/17/19 11/16/19 History fluoxetine 20 mg PO DAILY 11/17/19 11/17/19 11/16/19 History levothyroxine [Synthroid] 25 mcg PO DAILY 11/17/19 11/17/19 11/17/19 History raloxifene 60 mg PO DAILY 11/17/19 11/17/19 11/16/19 History Allergies Allergy/AdvReac Type Severity Reaction Status Date / Time amoxicillin [From Augmentin] Allergy Severe Unknown Verified 11/17/19 14:12 clavulanic acid Allergy Severe Unknown Verified 11/17/19 14:12 [From Augmentin] Current Medications Current Medications Generic Name Dose Route Start Last Admin Trade Name Freq PRN Reason Stop Dose Admin Enoxaparin Sodium 40 mg 11/17/19 16:00 11/17/19 15:41 Lovenox SUBCUT 40 mg Q24H JESSICA Administration Epinephrine HCl 2.5 mg/ Sodium 252.5 mls @ 0 mls/hr 11/17/19 15:30 11/17/19 17:47 Chloride IV 20 mcg/min .Q0M JESSICA 121.2 mls/hr Titration Protocol Per Protocol Vasopressin 100 unit/ Sodium 100 mls @ 0 mls/hr 11/17/19 16:00 11/17/19 16:19 Chloride IV 0.04 unit/min .Q0M JESSICA 2.4 mls/hr Administration Protocol Per Protocol PFSH Acute PFSH: Medical History Acute anterolateral wall [place] Depression Hypertension Hypothyroid Osteoporosis Family History (Updated 11/17/19 @ 15:57 by Penny Eden MD) Mother Diabetes Social History Smoking and tobacco status: former smoker Vitals/I&O/Wt Last Vital Signs Temp 97.7 F 11/17/19 08:51 Pulse 106 H 11/17/19 17:05 Resp 17 11/17/19 17:05 BP 81/57 11/17/19 16:55 Pulse Ox 85 L 11/17/19 17:05 11/17/19 11/17/19 11/17/19 06:59 14:59 22:59 Intake Total 1019.934 / 1019.934 124.060 / 1143.994 Output Total 75 / 75 Balance 1019.934 / 1019.934 49.060 / 1068.994 Weight last 48 hrs Weight 77.111 kg Physical Exam Narrative: EXAM NARRATIVE: Interview and examination performed with the assistance of bedside RN Const: ORIENTATION/CONSCIOUSNESS: Yes patient obtunded Chest: COMMONS NORMALS: normal inspection of the chest Resp: COMMON NORMALS: No retractions and No use of accessory muscles Cardio: COMMON NORMALS: S1 normal heart sound present and S2 normal heart sound present HEART SOUNDS: S1 normal heart sound present and S2 normal heart sound present Neuro: MOTOR EXAM: Other motor observations present (sedated and vented ) Urinary Catheter Management^: Coon: Cath Placed During This Visit: no Reason for Continuing Indwelling Catheter: Other Data Micro: Micro: Microbiology 11/17/19 15:20 Gram Stain - Final Sputum - Endotrac heal Tube Aspirate A&P Additional A&P Information 1. TRINA - At this time she has a severe mixed resp/metabolic acidosis, likely to be due lactic acidosis from tissue hypoperfusion - Dialysis may be beneficial if the acidosis is recalcitrant to bicarb therapy, however, at this time she is not maintaining her pressure to be able to perform dialysis despite multiple pressors - She is about to undergo IABP placement at which time if her pressure is maintained dialysis may be entertained - surgery is aware to place a line if needed - avoid the usual nephrotoxins - dose meds for anuric renal failure 2. Lytes - At this time she has a severe mixed resp/metabolic acidosis, likely to be due lactic acidosis from tissue hypoperfusion - Other basic chemistry looks ok - Q6 BMPs/ABG 3. S/p WV - S/p angioplasty per Dr Han; defer to his report - S/p ASA, multiple pressors, IABP 4. VDRF - per ICU team - prognosis is grave at this time, will follow with the team closely, thanks for cosultation Consult Attestations Medical Necessity Statement: Eval for TRINA and potential need for dialysis Coding Level of Care Code Acute Weblogic Developer for Keyla [facility]
[2019-11-17] MEDS: morphine 4 mg/mL SDV 1 mL 2 MG IVP (18:34)
[2019-11-17] MEDS: morphine 4 mg/mL SDV 1 mL IVP (19:20)
--- NOTE | 2019-11-17 19:30 | PM.DDS ---
Discharge Providers DDS Date of Admission: 11/17/19 14:31 Date Summary Completed: 11/17/19 Attending Provider at Admission: Eduard Han MD Time of : 19:34 Attending Provider at Discharge: Penny Eden MD Pronouncing Clinician: Penny Eden Primary Care Provider: Geneva DURBIN Diagnoses Hospital Diagnoses (1) Acute anterolateral wall VA: (2) Cardiogenic shock: (3) Respiratory failure: Qualifiers: Chronicity: acute Respiratory failure complication: hypoxia Qualified Code(s): J96.01 - Acute respiratory failure with hypoxia (4) Multiorgan failure: (5) Hypertension: Qualifiers: Hypertension type: essential hypertension Qualified Code(s): I10 - Essential (primary) hypertension (6) Osteoporosis: Qualifiers: Osteoporosis type: unspecified Presence of current pathological fracture: unspecified Qualified Code(s): M81.0 - Age-related osteoporosis without current pathological fracture (7) Hypothyroid: Qualifiers: Hypothyroidism type: unspecified Qualified Code(s): E03.9 - Hypothyroidism, unspecified (8) Depression: Qualifiers: Depression Type: unspecified Qualified Code(s): F32.9 - Major depressive disorder, single episode, unspecified Reason for Visit Reason for Visit: Chest pain Summary Date and Time of : Date of : 11/17/19 Time of : 19:34 Summary: Summary: Mrs. Olivera presented after acute onset of heart attack at home. She had no known personal history of coronary artery disease. She was ultimately found to have acute anterolateral ST elevation VA and went to [facility]. There she was found to have a totally occluded LAD with very large thrombus burden. The vessel was able to be opened and stented. Prior to this, she had been defibrillated twice today and given fluids and pressors for development of cardiogenic shock. She required intubation as well. On arrival to the ICU after procedure, she was on Levophed. She had received some Lasix in the [facility]. She continued to clinically decline and was ultimately on Levophed, epinephrine, vasopressin and Adrian-Synephrine. Consideration was given to balloon pump placement however as she was being prepared to take back to [facility], her pressures suddenly dropped despite measures being instituted. It was felt that proceeding with balloon pump would be futile at this point in time. In addition to hypotension, patient was hypoxemic and difficult to oxygenate due to pulmonary edema. Repeat laboratory studies showed early indications of acute renal failure, shock liver and persistent profound acidosis not compatible with life. I was in discussions with the family throughout the day, updating them. Dr. Han and myself talk with the family and ultimately it was decided to go on and transition her to comfort care as the chance of survival with meaningful recovery was vanishing rapidly. Family was allowed into see Mrs. Olivera and given emotional support. Her daughter Rose was able to see her and family helped her through this challenging time. Despite efforts, patient was pronounced at 1934 on the same date as admission. Patient's troponin at 6 hours was 3430. Interestingly, her of a massive heart attack about 6 years ago with very similar troponin values, and that was likely a different variant of troponin testing. Additional Data: Family: at bedside Additional persons at bedside: nursing staff Attending/PCP notified?: I am attending Was code activated?: No Autopsy requested?: No Advance directives?: No Hospice patient?: No Discharge Plan Discharge Patient Disposition: Condition: Serious Prescriptions: No Action Synthroid 25 mcg tablet 25 mcg PO DAILY RF: 0 amlodipine 10 mg tablet 10 mg PO DAILY RF: 0 raloxifene 60 mg tablet 60 mg PO DAILY RF: 0 fluoxetine 20 mg capsule 20 mg PO DAILY RF: 0 Referrals: Geneva Franklin [Primary Care Provider] - DS Attestations Time Spent in /Discharge Care*: critical care time (additional CC time 135 minutes for total critical care this date of 180 minutes) Quality - AMI: AMI present?: Yes Clinical Trial Participant: No Quality - Stroke: CVA present?: No Symptom Onset Unknown: No Quality - VTE: VTE present?: No Deep Vein Thrombosis/Pulmonary Embolism Present on Admission: No Coding Level of Care Code Acute Wound Care Physician for [facility] Fwd Diagnoses Acute anterolateral wall VA I21.09 Cardiogenic shock R57.0 Respiratory failure J96.01 Chronicity: acute Respiratory failure complication: hypoxia Multiorgan failure Hypertension I10 Hypertension type: essential hypertension Osteoporosis M81.0 Osteoporosis type: unspecified Presence of current pathological fracture: unspecified Hypothyroid E03.9 Hypothyroidism type: unspecified Depression F32.9 Depression Type: unspecified
--- NOTE | 2019-11-17 20:15 | PC.NURSE ---
Dr Eden at bedside with patient and family member. At 1700 patient is on max doses of pressors as well as getting ns bolus of 500, sats are not able to maintain even on complete vent support. right groin sheath intact and arterial line intact. patient is mottled in lower extremities. Dr. Eden has spoken with family and they have decided that they are going to dc drips and leave nature take its course. vent will remain in place. Morphine was given for pain and comfort patients family is at bedside and are all aware of impending soon. Patient peacefully went PEA on monitor at 1930 with family and Doctor at bedside. Patient went asystole at 1934. Dr. Eden at bedside and pronounced. MTS called spoke with Elijah and she will call back to let us know if we can release body. Family want s body to go to [facility] home in [place]. spoke with Jack Walter will call when body is ready to be picked up. All lines and tubes removed.
== END 2019-11-17 19:43 | disposition expired | DRG 246 ==
LOC: ER 12:39 → CCL 13:50 → ICU 14:32
PROVIDERS: Family Medicine; Admitting Provider Internal Medicine Cardiovascular Disease; PCP Family Medicine; Visit Provider Hospitalist
PROC: 027034Z Dilation of Coronary Artery, One Artery with Drug-eluting Intraluminal Device, Percutaneous Approach (ICD-10-PCS; principal; 2019-11-17 12:00)
PROC: 027034Z Dilation of Coronary Artery, One Artery with Drug-eluting Intraluminal Device, Percutaneous Approach (ICD-10-PCS; 2019-11-17 12:00)
DX: I21.09 ST elevation (STEMI) myocardial infarction involving other coronary artery of anterior wall (principal); J96.01 Acute respiratory failure with hypoxia; K72.00 Acute and subacute hepatic failure without coma; I47.1 Supraventricular tachycardia; N17.9 Acute kidney failure, unspecified; E87.4 Mixed disorder of acid-base balance; R57.0 Cardiogenic shock; I95.9 Hypotension, unspecified; I45.10 Unspecified right bundle-branch block; I10 Essential (primary) hypertension; F32.9 Major depressive disorder, single episode, unspecified; Z87.891 Personal history of nicotine dependence; I48.91 Unspecified atrial fibrillation; M81.0 Age-related osteoporosis without current pathological fracture; E03.9 Hypothyroidism, unspecified; Z51.5 Encounter for palliative care
CPT/HCPCS: 12345; 36600; 51702; 71045; 80051; 80053; 81001; 82810; 83735; 83880; 83986; 84100; 84443; 84484; 85025; 85610; 85730; 87070; 87077; 87086; 87186; 87205; 93005; 93454; 94002; 94799; 96372; 96375; 99284; C1725; C1757; C1769; C1874; C1887; C1894; C9606; J0171; J0330; J0696; J1644; J1650; J1815; J1940; J2001; J2250; J2270; J3010; J3246; J3475; J3490; J7030; J7040; J7050; Q9967